=== PATIENT | male | born 1975 | race African-American/Black ===

== ENCOUNTER 2022-06-12 18:49 | Emergency (ER) | payer BC ==
[2022-06-12 18:55] VITALS: BP 118/64; PULSE 73; RESP 18; TEMP 98; BMI 25.7
[2022-06-12] MEDS ORDERED: DIPHTH,PERTUSS(ACELL),TET 0.5 ML DISP.SYRIN IM ONE ×2 (20:02→20:03)
== END 2022-06-12 21:04 | disposition home or self-care (01) ==
LOC: JERFT 18:49
PROC: 0HQGXZZ Repair Left Hand Skin, External Approach (ICD-10-PCS; principal; 2022-06-12)
PROC: 3E0234Z Introduction of Serum, Toxoid and Vaccine into Muscle, Percutaneous Approach (ICD-10-PCS; 2022-06-12)
DX: S61.211A Laceration without foreign body of left index finger without damage to nail, initial encounter (principal); W26.0XXA Contact with knife, initial encounter; Y93.G1 Activity, food preparation and clean up
CPT/HCPCS: 90715; 99284-25